=== PATIENT | male | born 1930 | race Caucasian/White ===

== ENCOUNTER 2017-07-25 12:24 | Inpatient (IN) ==
--- NOTE | 2017-07-25 13:08 | Emergency Department Note ---
Arlyn Wheeler Gwan, am scribing for, and in the presence of, Ralph Malik MD 13:04 . Helena Wheeler James D, MD, personally performed the services described in this documentation, ascribed by Audelia Stoddard in my presence, and it is both accurate and complete . Arrival - Arrival Chief Complaint: Extremity Problem Stated Complaint: feet problems ED Nursing Triage Note: PT BEING TREATED FOR WOUNDS ON BOTTOM OF BOTH FEET, DRESSING ON BOTH FEET, TIP OF L GREAT TOE VISIBLE, APPEARANCE BLACK, STRONG ODOR OF GANGRENE Mode of Arrival: Ambulatory Limitations: No Limitations Source: Patient, Old Records Reviewed, RN Notes Reviewed - History of Present Illness HPI Narrative: Patient is a 86 y/o male who presents to the ED for further evaluation of bilateral feet. Patient stated that he is being treated for wounds on the bottom of bilateral feet. He currently has dressing to both feet. Patient stated that the home health nurse has been dressing his feet. During exam, there was a strong smell of gangrene, drainage noted and there is some discoloration. Patient denies being dx with DM. He confirmed that he is compliant with all prescribed medications. No other problems/complaints reported in ED. Onset (ago): day(s) Consistency: constant Severity: moderate Allergies/Adverse Reactions: Allergies Allergy/AdvReac Type Severity Reaction Status Date / Time No Known Allergies Allergy Verified 07/25/17 12:47 Home Medications: Home Medications Medication Instructions Recorded Confirmed Type Amiodarone Tab [Cordarone Tab] 200 mg PO BID 07/25/17 07/25/17 History Finasteride [Proscar] 5 mg PO DAILY 07/25/17 07/25/17 History Review of System - Review of System 12 point system: reviewed and no additional remarkable complaints except as stated - Review of System Constitutional: Absent: chills, fever Eyes: Absent: discharge, pain Musculoskeletal: Present: as per HPI, other (wounds to both feet). Absent: arm pain, back pain, leg pain, neck pain Medical,Surgical,& Family Hx - Medical History Cardio: History of: CHF Renal: History of: Renal Problems (one kidney) Genitourinary: History of: Bladder Problem (indwelling sesay), Prostate Problems - Family History Family History: Reports;: Family Cancer, Family Diabetes, Family Hypertension - Social History Smoking Status: Never smoker Exam Physical Examination: GENERAL: This is a white male in no apparent distress. VITAL SIGNS: Reviewed HEENT: Head is normocephalic and atraumatic. Pupils are equally round and reactive to light. Extraocular movement are intact. Oropharynx is benign with moist mucous membranes. NECK: Neck is soft and supple without tenderness. There are no masses. There is no lymphadenopathy. LUNGS: Lungs are clear to auscultation bilaterally. Chest rises symmetrically. There is no chest wall tenderness. CV: Heart is regular rate and rhythm without murmurs, rubs, or gallops. ABDOMEN: Abdomen is soft, non-tender to palpation. There are no abnormal masses palpated. There is no organomegaly. Bowel sounds are present and active. SKIN: Skin is warm and dry. No rash. EXTREMITIES: Patient has deep ulceration of the left fourth toe with foul- smelling discharge and a large amount of necrotic tissue. The left great toe is swollen to about twice its normal size. Right great toe also has an ulcer and foul-smelling drainage. A culture is obtained from the left great toe.. NEUROLOGIC: Awake, alert, and oriented x4. Cranial nerves II through XII are grossly intact. There are no motorsensory deficits. PSYCHIATRIC: Normal affect. Normal mood. Vital Signs: Vital Signs Temperature 99.2 F 07/25/17 13:00 Pulse Rate 70 07/25/17 14:30 Respiratory Rate 18 07/25/17 14:30 Blood Pressure 164/69 07/25/17 14:30 O2 Sat by Pulse Oximetry 94 L 07/25/17 14:30 Course - Consultations Consultation #1: Discussed with hospitalist. Patient will be admitted to their service. Time: 15:05 Results - Labs CBC & BMP: 07/25/17 13:34 07/25/17 13:34 Lab Results: I have reviewed the patients labs - Diagnostic Findings Procedure: X-ray: image reviewed by me (Bilateral foot x-ray: Destructive bone lesion of the left great toe involving distal and proximal phalanges.) Disposition Clinical Impression: Gangrenous left great toe, Diabetes mellitus, Diabetic foot Case discussed with: patient Disposition: Still a Patient Condition: Stable Time of Disposition: 15:04
--- NOTE | 2017-07-25 13:24 | XRay Report ---
XR foot 2V BI Indication: Gangrene Comparison: None available Findings: Soft tissue wound is seen over the first digit on the right without destructive changes. There is soft tissue wound overlying the first digit on the left with destructive changes of both the proximal and distal phalanx. Impression: Osteomyelitis and septic arthritis of the first digit of the left foot as described above. Soft tissue wound seen over the first digit of the right foot without destructive changes. PROCEDURE INTERPRETED AT [facility] DEPARTMENT OF RADIOLOGY Final Report Signed by: Dr. Ad Martinez
[2017-07-25 13:45] LABS: Basophils # 0.1 10*3/uL (0.0-0.2); Basophils % 0.2 % (0.0-0.8); Eosinophils % 0.1 % (0.00-10.9); Hematocrit 34.2 VOL% (42.0-52.0); Hemoglobin 10.3 GM/DL (14.0-18.0); Immature Granulocytes % 0.5 %; Immature Granulocytes Absolute 0.15 #; Lymphocytes # 24.9 10*3/uL (1.4-4.0); Lymphocytes % 80.4 % (21.2-54.2); Mean Corpuscular HGB Conc 30.1 GM/DL (32-36); Mean Corpuscular Hemoglobin 25 PG (27-34); Mean Corpuscular Volume 83.6 FL (87-102); Mean Platelet Volume 10.1 FL (9.6-12.0); Monocytes # 0.3 10*3/uL (0.11-0.8); Neutrophils # 5.5 10*3/uL (1.4-7.4); Neutrophils % 17.8 % (38.7-73.9); Platelet Count 250 T/CUMM (130-400); Red Blood Count 4.09 MC/CUMM (3.8-5.5); Red Cell Distribution Width 17.2 % (9.3-17.3); White Blood Count 30.9 T/CUMM (4-12)
[2017-07-25 13:54] LABS: INR 1.1; PT Patient Result 11.3 SECS; Partial Thromboplastin Time 29.8 SECS (0-40)
[2017-07-25 14:03] LABS: Lymphocytes 59 % (20-55); Platelet Estimate Adequate; Segmented Neutrophils 36 % (50-85); Total Cells Counted 100
[2017-07-25 14:04] LABS: Anisocytosis Slight; Ovalocytes Slight; Poikilocytosis Slight; Smudge Cells 2+
[2017-07-25 14:08] LABS: Alanine Aminotransferase 20 U/L (16-61); Albumin 3.3 G/DL (3.4-5.0); Alkaline Phosphatase 81 U/L (45-117); Aspartate Amino Transferase 9 U/L (0-37); Bilirubin,Total < 0.39 MG/DL (0.2-1.0); Blood Urea Nitrogen 43 MG/DL (7-18); Calcium 9.2 MG/DL (8.5-10.1); Glucose 359 MG/DL (74-106); Osmolality,Calculated 299.7 MOS/KG (273-304); Potassium 4.3 MMOL/L (3.5-5.1); Sodium 138 MMOL/L (136-145); Total Protein 7.4 G/DL (6.4-8.3)
[2017-07-25] MEDS ORDERED: PIPERACILLIN/TAZOBACTAM 3,375 MG in SODIUM CHLORIDE 0.9% 100 ML IV STA (15:04)
[2017-07-25] MEDS ORDERED: INSULIN LISPRO 100 UNIT/ML SUBCUT STA (15:05)
[2017-07-25] MEDS ORDERED: PIPERACILLIN/TAZOBACTAM 3,375 MG VIAL IV ONE (15:08)
[2017-07-25] MEDS ORDERED: INSULIN LISPRO 100 UNIT/ML SUBCUT ONE (15:09)
[2017-07-25] MEDS ORDERED: ACETAMINOPHEN 325 MG TABLET PO PRN (15:36)
[2017-07-25] MEDS ORDERED: ONDANSETRON 4 MG/2 ML VIAL IV PRN (15:36)
--- NOTE | 2017-07-25 15:39 | Hospitalist History & Physical ---
<Gabbi Bartlett - Last Filed: 07/25/17 15:41> Assessment and Plan - Time spent with patient Time spent with patient: Greater than 30 minutes (1) Diabetic foot Status: Acute Assessment and plan: 07/25/17 Admit Patient denies every being told he was a diabetic. -xray: osteomyelitis -Antibiotic (clindamycin) -accuchecks and sliding scale (on admission BS 359) -Check A1c in a.m. -lipids -Culture of left foot obtained in ed - follow for results -consult surgery (Dr Gandhi) -Patient is followed by renal MD in [place]( has a sesay/leg bag)- will monitor renal -repeat a.m. labs -Further recommendations with care to follow per Dr Tucker. Current Visit: Yes History of Present Illness Chief complaint: foot odor, swelling History of present illness: Mr. Billings is a 86 year old white male w/PMHx CHF, 1-kidney(left), with indwelling sesay/leg bag, prostate problems presented to the ED for further evaluation of wounds to bilateral feet. He reports left great to has been swollen for a couple of days with drainage. He denies any fever, chills, nausea , or vomting. He denies ever being told he has diabetes. IN ED: WBC 30.9, H& H stable 10.3/34.2. BUN 43, Creatinine 2.20. Glucose 359 (6units Humalog given in ED). Wound culture obtained from left great toe. Zosyn started in ED. Xray-foot: Osteomyelitis and septic arthritis of the first digit of left foot, soft tissue wound seen over first digit of right foot. Denies smoking, alcohol use, or drug use. He lives with his and ambulates with a cane. PCP: none Renal: Dr Campos (?MD in [place]) - patient has one kidney and sesay w/leg bag Plug Maker: Dr Rosen After discussion with Dr Malik in ED and Dr Tucker with Hospital Medicine, it was agreed to admit patient for further care. Home medications to be reviewed and reconciliation to follow. Home Medications Medication Instructions Recorded Confirmed Type Amiodarone Tab [Cordarone Tab] 200 mg PO BID 07/25/17 07/25/17 History Finasteride [Proscar] 5 mg PO DAILY 07/25/17 07/25/17 History Allergies Allergy/AdvReac Type Severity Reaction Status Date / Time No Known Allergies Allergy Verified 07/25/17 12:47 Medical,Surgical,& Family Hx - Medical History Cardio: History of: CHF Renal: History of: Renal Problems (one kidney) Genitourinary: History of: Bladder Problem (indwelling sesay), Prostate Problems - Family History Family History: Reports;: Family Cancer, Family Diabetes, Family Hypertension - Social History Smoking Status: Never smoker Frequency of Alcohol Use: None Type of Drug Use: None Marital Status: Lives With:: Spouse Functional capacity: uses cane/walker 12 point system: reviewed and no additional remarkable complaints except as stated - Constitutional Constitutional: Absent: chills, fever(s), frequent falls - Cardiovascular Cardiovascular: Absent: dyspnea, dyspnea on exertion - Respiratory Respiratory: Absent: dyspnea - Neurological Neurological: Absent: dizziness, headache(s) Exam - Constitutional Vitals: Period Temp Pulse Resp BP Sys/Killian Pulse Ox Last 24 Hr 99.2 F-99.2 F 66-87 17-18 161-179/69-84 94-98 General appearance: normal weight, no acute distress - Head Head exam: Present: normal inspection - Eye Eye exam: Present: EOMI Pupils: Present: NICCI - Neck Neck exam: Present: normal inspection. Absent: thyromegaly - Respiratory Respiratory exam: Present: clear to auscultation bilaterally. Absent: rhonchi, stridor, wheezes - Cardiovascular Cardiovascular exam: Present: regular rate and rhythm - GI/Abdominal GI/Abdominal exam: Present: normal bowel sounds, soft. Absent: tenderness, rebound - Extremities Exam Extremities exam: Present: full ROM, other (right foot: callus-great toe; left foot callus -great toe with swelling, red, 4th toe foul odor drainage ). Absent : edema - Neurological Exam Neurological exam: Present: alert, oriented X3, CN II-XII intact - Psychiatric Psychiatric exam: Present: normal affect, normal mood. Absent: agitated, anxious - Skin Skin exam: Present: normal color, warm, dry Results - Labs CBC & BMP: 07/25/17 13:34 07/25/17 13:34 Lab Results: I have reviewed the past 24 hour labs - Diagnostic Findings Procedure: X-ray: report reviewed by me (foot: Osteomyelitis and septic arthritis of first digit of left foot; soft tissue balancing of her first digit of right foot without destrictive change) <Héctor Tucker - Last Filed: 07/25/17 17:04> History of Present Illness History of present illness: Mr. Billings is a 86 year old male who is being admitted to the hospital with osteomyelitis and septic arthritis of the first digit of the left foot and associated soft tissue infection. He has no previously known history of diabetes mellitus but has been found on admission laboratory testing to have a random serum glucose of 359. I have interviewed and examined the patient and reviewed all available laboratory and radiographic test results. He is being admitted to the hospital, begun on intravenous antibiotics, begun on sliding scale regular insulin coverage, and will see surgery and infectious diseases in consultation. Exam - Constitutional Vitals: Period Temp Pulse Resp BP Sys/Killian Pulse Ox Last 24 Hr 99.2 F-99.2 F 66-87 17-18 161-179/69-84 94-98 Results - Labs CBC & BMP: 07/25/17 13:34 07/25/17 13:34
[2017-07-25] MEDS ORDERED: GLUCAGON 1 MG VIAL IM PRN (18:12)
[2017-07-25] MEDS ORDERED: DEXTROSE 50% 25 GM/50 ML VIAL IV PRN (18:12)
[2017-07-25] MEDS: INSULIN LISPRO 100 UNIT/ML SUBCUT SCH ×2 (20:11→20:41)
[2017-07-25] MEDS: AMIODARONE 200 MG TABLET PO SCH (20:43)
[2017-07-25] MEDS: CLINDAMYCIN INJ 600 MG in PREMIX 1 EACH IV SCH (20:44)
[2017-07-25] MEDS: SODIUM CHLORIDE 0.9% 1,000 ML IV SCH (20:44)
[2017-07-26] MEDS: CLINDAMYCIN INJ 600 MG in PREMIX 1 EACH IV SCH ×3 (00:09→17:18)
[2017-07-26 06:23] LABS: Basophils % 0.1 % (0.0-0.8); Eosinophils # 0.1 10*3/uL (0.0-0.87); Eosinophils % 0.4 % (0.00-10.9); Hematocrit 32.3 VOL% (42.0-52.0); Hemoglobin 9.8 GM/DL (14.0-18.0); Immature Granulocytes % 0.4 %; Immature Granulocytes Absolute 0.12 #; Lymphocytes % 82.5 % (21.2-54.2); Mean Corpuscular HGB Conc 30.3 GM/DL (32-36); Mean Corpuscular Hemoglobin 25 PG (27-34); Mean Corpuscular Volume 82.2 FL (87-102); Mean Platelet Volume 9.7 FL (9.6-12.0); Monocytes # 0.3 10*3/uL (0.11-0.8); Monocytes % 1.1 % (1.7-12.7); Neutrophils # 4.3 10*3/uL (1.4-7.4); Neutrophils % 15.5 % (38.7-73.9); Platelet Count 221 T/CUMM (130-400); Red Blood Count 3.93 MC/CUMM (3.8-5.5); Red Cell Distribution Width 17.1 % (9.3-17.3); White Blood Count 27.8 T/CUMM (4-12)
[2017-07-26 06:59] LABS: Calcium 8.4 MG/DL (8.5-10.1); Potassium 4.6 MMOL/L (3.5-5.1); Risk Ratio 4.94; VLDL CHOLESTEROL 26.4 MG/DL
--- NOTE | 2017-07-26 07:00 | General Surgery Consult Note ---
Assessment and Plan (1) Diabetic foot Status: Acute Assessment and plan: Impression: #1 diabetic foot ulcer right great toe #2 diabetic infection left great toe with osteomyelitis Plan: Discussed recommendations with the patient. I have recommended amputation of the left great toe with debridement of the right great toe. Alternatives of medical management with antibiotics alone discussed. The risks and benefits of all discussed. I discussed the procedure how it is performed and anticipated recovery. Risk of the procedure including bleeding, infection, damage to surrounding structures, need for further surgery were all discussed in detail and he understands and wants to proceed. Current Visit: Yes History of Present Illness Chief complaint: Toe ulcer History of present illness: Mr. Billings is a 86 year old male presented to the emergency room with bilateral ulcerations to the great toes. Patient is newly diagnosed diabetic. For the last 3 weeks he has had drainage coming from a swollen left great toe. He denies having fever at home. He has no significant pain. Home Medications Medication Instructions Recorded Confirmed Type Amiodarone Tab [Cordarone Tab] 200 mg PO BID 07/25/17 07/25/17 History Finasteride [Proscar] 5 mg PO DAILY 07/25/17 07/25/17 History Allergies Allergy/AdvReac Type Severity Reaction Status Date / Time No Known Allergies Allergy Verified 07/25/17 12:47 Medical,Surgical,& Family Hx - Medical History Cardio: History of: CHF Renal: History of: Renal Problems (one kidney) Genitourinary: History of: Bladder Problem (indwelling sesay), Prostate Problems Other: History of: Cancer (hx skin cancer) - Family History Family History: Reports;: Family Cancer, Family Diabetes, Family Hypertension - Social History Smoking Status: Never smoker Frequency of Alcohol Use: None Type of Drug Use: None 12 point system: reviewed and no additional remarkable complaints except as stated Exam - Constitutional Vitals: Period Temp Pulse Resp BP Sys/Killian Pulse Ox Last 24 Hr 99.2 F-99.2 F 64-87 17-18 152-207/69-93 94-98 General appearance: no acute distress - Head Head exam: Present: normocephalic - Neck Neck exam: Present: normal inspection - Respiratory Respiratory exam: Present: clear to auscultation bilaterally - Cardiovascular Cardiovascular exam: Present: RRR - GI/Abdominal GI/Abdominal exam: Present: soft - Extremities Exam Extremities exam: Present: other (Feet warm bilaterally. On the right great toe plantar surface there is a small ulceration with nonviable tissue present but it does not appear swollen or have any significant erythema. On the left great toe the toe is approximately twice the size of his right great toe. There is a large ulceration with bone palpable. There is necrotic tissue with purulence draining. There is surrounding erythema limited to the toe only.) - Back Exam Back exam: Present: normal inspection - Neurological Exam Neurological exam: Present: alert, oriented X3 - Skin Skin exam: Present: normal color Results - Labs CBC & BMP: 07/26/17 05:48 07/25/17 13:34 Lab Results: I have reviewed the past 24 hour labs
--- NOTE | 2017-07-26 08:06 | Hospitalist Progress Note ---
Assessment and Plan (1) Osteomyelitis of left foot Status: Acute Assessment and plan: X-rays of the feet demonstrated osteomyelitis of the left great toe and soft tissue infection of the right great toe. He is presently being treated with intravenous clindamycin and Zosyn. He has been seen in consultation by Dr. Gandhi of general surgery who plans an amputation of the left great toe and debridement of the right great toe. I have consulted of DC. Current Visit: Yes (2) Acute on chronic renal failure Status: Acute Assessment and plan: He has a previously known history of chronic kidney disease. His BUN and creatinine were 43 and 2.2 respectively yesterday. He has been treated with intravenous normal saline infusion. His BUN and creatinine today have decreased to 34 and 1.8 respectively. I will continue the intravenous normal saline infusion. Current Visit: Yes Qualifiers: Acute renal failure type: unspecified Chronic kidney disease stage: stage 3 (moderate) Qualified Code(s): N17.9 - Acute kidney failure, unspecified; N18.3 - Chronic kidney disease, stage 3 (moderate); N18.3 - Chronic kidney disease, stage 3 (moderate) (3) Diabetes mellitus Status: Acute Assessment and plan: He has no previously known history of diabetes mellitus. His admission laboratory testing demonstrated blood glucose of 359 and hemoglobin A1c of 8.6% . He is presently being treated with sliding scale regular insulin coverage. I have begun him on metformin 500 mg p.o. twice daily. Current Visit: Yes Qualifiers: Diabetes mellitus type: type 2 Diabetes mellitus complication detail: with foot ulcer Diabetes mellitus equipment operator intermodal yard insulin use: without equipment operator intermodal yard use Hospitalist: Subjective Interval history: Patient spent an uneventful night. He continues on intravenous clindamycin and Zosyn. He was seen yesterday in consultation by Dr. Chavez of general surgery who recommended amputation of the left great toe and debridement of the right great toe. Patient had no known previous history of diabetes mellitus. Laboratory testing demonstrated admission blood glucose of 359 and hemoglobin A1c of 8.6%. He was begun yesterday on sliding scale regular insulin coverage. I will begin him today on metformin. Exam - Constitutional Vitals: Period Temp Pulse Resp BP Sys/Killian Pulse Ox Last 24 Hr 99.2 F-99.2 F 64-87 17-18 152-207/69-93 94-98 General appearance: no acute distress - Head Head exam: Present: normal inspection - Neck Neck exam: Present: normal inspection - Respiratory Respiratory exam: Present: clear to auscultation bilaterally - Cardiovascular Cardiovascular exam: Present: regular rate and rhythm - GI/Abdominal GI/Abdominal exam: Present: normal bowel sounds, soft, other (Nontender with no palpable masses or hepatosplenomegaly.) - Extremities Exam Extremities exam: Present: other (Present: other (Feet warm bilaterally. On the right great toe plantar surface there is a small ulceration with nonviable tissue present but it does not appear swollen or have any significant erythema. On the left great toe the toe is approximately twice the size of his right great toe. There is a large ulceration with bone palpable. There is necrotic tissue with purulence draining. There is surrounding erythema limited to the toe only.)) - Neurological Exam Neurological exam: Present: alert, oriented X3 - Skin Skin exam: Present: normal color, warm, intact Results - Labs CBC & BMP: 07/26/17 05:48 07/26/17 05:47
[2017-07-26 08:48] LABS: Eosinophils 1 % (0-10); Lymphocytes 75 % (20-55); Segmented Neutrophils 22 % (50-85); Total Cells Counted 100
[2017-07-26 08:49] LABS: Hypochromasia 1+; Microcytosis 1+; Ovalocytes Slight; Platelet Estimate Normal
[2017-07-26] MEDS ORDERED: CLINDAMYCIN INJ 50 ML IV ONE (09:14)
--- NOTE | 2017-07-26 10:22 | Anesthesia Post-Op ---
Anesthesia Post OP - Post Ansesthetic Evaluation Patient seen in post op: Yes Resp: within normal limits CV: within normal limits Mental: within normal limits Temp: within normal limits Cyom-Ic-Hkowaftds: within normal limits Nausea and Vomiting: within normal limits Pain: within normal limits
[2017-07-26] MEDS ORDERED: PROPOFOL 200 MG/20 ML VIAL IV ONE (10:25)
[2017-07-26] MEDS ORDERED: ePHEDrine 50 MG/ML AMP ONE (10:26)
[2017-07-26] MEDS ORDERED: ONDANSETRON 4 MG/2 ML VIAL ONE ×2 (10:26→10:50)
[2017-07-26] MEDS ORDERED: fentaNYL 100 MCG/2 ML VIAL ONE (10:26)
[2017-07-26] MEDS ORDERED: SEVOFLURANE 1 UNIT/15 MINUTE INH ONE (10:26)
[2017-07-26] MEDS: INSULIN LISPRO 100 UNIT/ML SUBCUT SCH ×4 (10:29→20:19)
[2017-07-26] MEDS: metFORMIN 500 MG TABLET PO SCH ×2 (10:29→17:17)
[2017-07-26] MEDS: AMIODARONE 200 MG TABLET PO SCH ×3 (10:29→20:19)
[2017-07-26] MEDS: FINASTERIDE 5 MG TABLET PO SCH ×2 (10:30→12:14)
[2017-07-26] MEDS: PANTOPRAZOLE 40 MG TABLET PO SCH ×2 (10:30→12:14)
[2017-07-26] MEDS ORDERED: ONDANSETRON 4 MG/2 ML VIAL IV PRN (10:48)
[2017-07-26] MEDS: HYDROmorphone 2 MG/1 ML VIAL IV PRN ×2 (10:50→10:59)
[2017-07-26] MEDS ORDERED: HYDROmorphone 2 MG/1 ML VIAL ONE (10:50)
--- NOTE | 2017-07-26 12:24 | Operative Note ---
Date of procedure: 07/26/17 Pre-op diagnosis: Diabetic ulcer right great toe #2 diabetic infection left great toe with os Post-op diagnosis: same Procedure: Procedure performed: #1 transmetatarsal amputation of left great toe #2 excisional debridement right great toe ulcer 2 including skin and subcutaneous tissue. First ulcer was 1.1 x 0.8 cm the medial ulcer was 0.9 x 0.4 cm post debridement. Procedure in detail: After informed consent was obtained the patient was taken operating suite lies upon the operating table. After general anesthesia was induced the bilateral lower extremities were prepped and draped in usual sterile fashion. After procedural pause circular incision made around the left great toe and extended down onto the foot. Dissection carried down through the skin and soft tissue. The tendinous structures were divided and placed at the level of the metatarsophalangeal joint. The toe was removed to the metatarsophalangeal joint space and passed off the field. There was evidence of septic arthritis of the metatarsophalangeal joint. The the head of the metatarsal was soft indicating some osteomyelitis of this bone as well. Microsaw was then used to transect the metatarsal removing the head. It was passed off the field. The wound was thoroughly irrigated and suctioned. There is good hemostasis. There was no necrotic tissue. Approximately half of the incision on the proximal portion was closed with interrupted 2-0 nylon suture loosely. The wound was packed with 2 inch Kerlix gauze. Sterile dressings applied. Next a curette was used to perform an excisional debridement on the right great toe. There were 2 ulcers on the plantar surface and one on the medial surface of both were debrided back to healthy bleeding tissue. All the necrotic nonviable skin and subcutaneous tissue was removed. Dressing was applied. Patient tolerated procedure well. He was taken recovery room in stable condition. All lap and needle counts correct at the end of the case. Anesthesia: GETA Surgeon / Physician: Jacobo Gandhi Estimated blood loss: other (Less than 25 cc) Specimens: other (Left great toe) Condition: stable Disposition: PACU Results - Labs CBC & BMP: 07/26/17 05:48 07/26/17 05:47 Discharge Plan - Discharge Medications No Action Finasteride [Proscar] 5 mg PO DAILY Amiodarone Tab [Cordarone Tab] 200 mg PO BID - Follow Up or Referral - Forms/Instructions
--- NOTE | 2017-07-26 13:07 | Infectious Disease Consult ---
Assessment and Plan (1) Diabetes mellitus Status: Acute Current Visit: Yes Qualifiers: Diabetes mellitus type: type 2 Diabetes mellitus complication detail: with foot ulcer Diabetes mellitus termite inspector insulin use: without fpc use (2) Osteomyelitis of left foot Status: Acute Assessment and plan: Patient had amputation of the affected left great toe. For this reason he probably will not need prolonged antibiotic therapy. He has cultures pending and we will continue current antibiotics and follow-up finalized cultures. Depending on the appearance of his feet will decide on duration of antibiotic therapy. Thank you very much for the consult. Will follow. Current Visit: Yes (3) Acute on chronic renal failure Status: Acute Current Visit: Yes Qualifiers: Acute renal failure type: unspecified Chronic kidney disease stage: stage 3 (moderate) Qualified Code(s): N17.9 - Acute kidney failure, unspecified; N18.3 - Chronic kidney disease, stage 3 (moderate); N18.3 - Chronic kidney disease, stage 3 (moderate) History of Present Illness Chief complaint: Osteomyelitis History of present illness: Mr. Billings is a 86 year old male came to hospital yesterday because of pain to feet. He has had chronic ulcers to both feet for prolonged period and has been following with podiatry. Because the pain got unbearable he decided to come to the hospital. His family did not realize his feet was bad as they were on admission. He had evidence of a cellulitis of the left great toe. He was taken to surgery today to amputate the left toe. He had debridement of right great toe which did not appear to have osteomyelitis on imaging studies. Patient has not fever or other constitutional symptoms. Per his family he does not like hospitals and was not previously known to be diabetic. I am asked to assist with management. Home Medications Medication Instructions Recorded Confirmed Type Amiodarone Tab [Cordarone Tab] 200 mg PO BID 07/25/17 07/25/17 History Finasteride [Proscar] 5 mg PO DAILY 07/25/17 07/25/17 History Allergies Allergy/AdvReac Type Severity Reaction Status Date / Time No Known Allergies Allergy Verified 07/25/17 12:47 12 point system: reviewed and no additional remarkable complaints except as stated (Per HPI) Medical,Surgical,& Family Hx - Medical History Cardio: History of: CHF Renal: History of: Renal Problems (one kidney) Genitourinary: History of: Bladder Problem (indwelling sesay), Prostate Problems Other: History of: Cancer (hx skin cancer) - Family History Family History: Reports;: Family Cancer, Family Diabetes, Family Hypertension - Social History Smoking Status: Never smoker Frequency of Alcohol Use: None Type of Drug Use: None Infectious Disease Exam H&P - Constitutional Vitals: Vital Signs Temp Pulse Resp BP Pulse Ox 97.4 F L 65 20 159/71 94 L 07/26/17 11:36 07/26/17 11:36 07/26/17 11:36 07/26/17 11:36 07/26/17 11:36 Intake and Output 07/25/17 07/26/17 07/26/17 23:59 07:59 15:59 Intake Total 410 / 410 50 / 50 50 / 50 Output Total 600 / 600 300 / 300 Balance -190 / -190 -250 / -250 50 / 50 Intake: IV 50 / 50 50 / 50 50 / 50 Cleocin Inj 600 mg In 50 / 50 50 / 50 50 / 50 Premix 1 Each @ 100 mls/ hr IV Q8H [facility] Rx#: [id number] Oral 360 / 360 Output: Urine 600 / 600 300 / 300 Other: Voiding Method Indwelling Catheter Indwelling Catheter # Bowel Movements 0 0 Weight 74.389 kg Exam: General: Patient comfortable HEENT: Mucous membranes pink and moist, anicteric acyanotic, NICCI, no oropharyngeal exudates Neck: Supple, no thyroid gland enlargement Respiratory system: Breath sounds vesicular, no crepitations or wheezes Cardiovascular: Normal S1 and S2, no murmurs appreciated Abdomen: Normal bowel sounds, soft nontender throughout, no organomegaly or mass Genitourinary: No suprapubic pain or bladder distention Extremities: no edema, feet bandaged Skin: No rash Reports - Labs CBC & BMP: 07/26/17 05:48 07/26/17 05:47 Labs: Laboratory Results - last 24 hr 07/25/17 07/25/17 07/25/17 13:34 13:34 13:34 WBC 30.9 H RBC 4.09 Hgb 10.3 L Hct 34.2 L MCV 83.6 L MCH 25 L MCHC 30.1 L RDW 17.2 Plt Count 250 MPV 10.1 Neut % (Auto) 17.8 L Lymph % (Auto) 80.4 H [place] % (Auto) 1.0 L Eos % (Auto) 0.1 Baso % (Auto) 0.2 Neut # (Auto) 5.5 Lymph # (Auto) 24.9 H [place] # (Auto) 0.3 Eos # (Auto) 0.0 Baso # (Auto) 0.1 Total Counted 100 Immature Gran % 0.5 Nucleated RBC % 0.0 Immature Gran # 0.15 Segmented Neutrophils 36 L Lymphocytes 59 H Monocytes 5 Eosinophils Nucleated RBCs # 0.00 Smudge Cells 2+ Platelet Estimate Adequate Immature Plt Fraction 0.0 Hypochromasia Poikilocytosis Slight Anisocytosis Slight Microcytosis Ovalocytes Slight INR 1.1 PT Patient/Control Mix 11.3 Circ Anticoag PTT 29.8 Sodium 138 Potassium 4.3 Chloride 106 Carbon Dioxide 25 Anion Gap 11.3 BUN 43 H Creatinine 2.20 H GFR Calculation 29 BUN/Creatinine Ratio 19.00 Glucose 359 H POC Glucose Hemoglobin A1c Calculated Osmolality 299.7 Calcium 9.2 Magnesium Total Bilirubin < 0.39 AST 9 ALT 20 Alkaline Phosphatase 81 B-Natriuretic Peptide Total Protein 7.4 Albumin 3.3 L Globulin 4.1 H Albumin/Globulin Ratio 0.8 L Triglycerides Cholesterol LDL Cholesterol VLDL Cholesterol HDL Cholesterol Heart Disease Risk Ratio 07/25/17 07/25/17 07/26/17 17:56 18:52 05:47 WBC RBC Hgb Hct MCV MCH MCHC RDW Plt Count MPV Neut % (Auto) Lymph % (Auto) [place] % (Auto) Eos % (Auto) Baso % (Auto) Neut # (Auto) Lymph # (Auto) [place] # (Auto) Eos # (Auto) Baso # (Auto) Total Counted Immature Gran % Nucleated RBC % Immature Gran # Segmented Neutrophils Lymphocytes Monocytes Eosinophils Nucleated RBCs # Smudge Cells Platelet Estimate Immature Plt Fraction Hypochromasia Poikilocytosis Anisocytosis Microcytosis Ovalocytes INR PT Patient/Control Mix Circ Anticoag PTT Sodium 143 Potassium 4.6 Chloride 108 H Carbon Dioxide 27 Anion Gap 12.6 BUN 34 H Creatinine 1.80 H GFR Calculation 36 BUN/Creatinine Ratio 18.00 Glucose 150 H POC Glucose 197 H 144 H Hemoglobin A1c Calculated Osmolality 295.0 Calcium 8.4 L Magnesium 2.0 Total Bilirubin AST ALT Alkaline Phosphatase B-Natriuretic Peptide Total Protein Albumin Globulin Albumin/Globulin Ratio Triglycerides 132 Cholesterol 158 LDL Cholesterol 105.0 VLDL Cholesterol 26.4 HDL Cholesterol 32 L Heart Disease Risk Ratio 4.94 07/26/17 07/26/17 07/26/17 05:48 05:48 05:48 WBC 27.8 H RBC 3.93 Hgb 9.8 L Hct 32.3 L MCV 82.2 L MCH 25 L MCHC 30.3 L RDW 17.1 Plt Count 221 MPV 9.7 Neut % (Auto) 15.5 L Lymph % (Auto) 82.5 H [place] % (Auto) 1.1 L Eos % (Auto) 0.4 Baso % (Auto) 0.1 Neut # (Auto) 4.3 Lymph # (Auto) 23.0 H [place] # (Auto) 0.3 Eos # (Auto) 0.1 Baso # (Auto) 0.0 Total Counted 100 Immature Gran % 0.4 Nucleated RBC % 0.0 Immature Gran # 0.12 Segmented Neutrophils 22 L Lymphocytes 75 H Monocytes 2 Eosinophils 1 Nucleated RBCs # 0.00 Smudge Cells Platelet Estimate Normal Immature Plt Fraction 0.0 Hypochromasia 1+ Poikilocytosis Anisocytosis Microcytosis 1+ Ovalocytes Slight INR PT Patient/Control Mix Circ Anticoag PTT Sodium Potassium Chloride Carbon Dioxide Anion Gap BUN Creatinine GFR Calculation BUN/Creatinine Ratio Glucose POC Glucose Hemoglobin A1c 8.6 H Calculated Osmolality Calcium Magnesium Total Bilirubin AST ALT Alkaline Phosphatase B-Natriuretic Peptide 168 H Total Protein Albumin Globulin Albumin/Globulin Ratio Triglycerides Cholesterol LDL Cholesterol VLDL Cholesterol HDL Cholesterol Heart Disease Risk Ratio 07/26/17 07:20 WBC RBC Hgb Hct MCV MCH MCHC RDW Plt Count MPV Neut % (Auto) Lymph % (Auto) [place] % (Auto) Eos % (Auto) Baso % (Auto) Neut # (Auto) Lymph # (Auto) [place] # (Auto) Eos # (Auto) Baso # (Auto) Total Counted Immature Gran % Nucleated RBC % Immature Gran # Segmented Neutrophils Lymphocytes Monocytes Eosinophils Nucleated RBCs # Smudge Cells Platelet Estimate Immature Plt Fraction Hypochromasia Poikilocytosis Anisocytosis Microcytosis Ovalocytes INR PT Patient/Control Mix Circ Anticoag PTT Sodium Potassium Chloride Carbon Dioxide Anion Gap BUN Creatinine GFR Calculation BUN/Creatinine Ratio Glucose POC Glucose 168 H Hemoglobin A1c Calculated Osmolality Calcium Magnesium Total Bilirubin AST ALT Alkaline Phosphatase B-Natriuretic Peptide Total Protein Albumin Globulin Albumin/Globulin Ratio Triglycerides Cholesterol LDL Cholesterol VLDL Cholesterol HDL Cholesterol Heart Disease Risk Ratio - Reports Microbiology: Microbiology 07/25/17 13:34 Wound Culture - Preliminary Toe - Left Big Gram Negative Rods - Diagnostic Findings Procedure: X-ray: report reviewed by me (Cellulitis changes of left great toe)
[2017-07-26] MEDS: SODIUM CHLORIDE 0.9% 1,000 ML IV SCH ×2 (15:10→19:43)
[2017-07-26] MEDS: PIPERACILLIN/TAZOBACTAM 3,375 MG in SODIUM CHLORIDE 0.9% 100 ML IV SCH (19:43)
--- NOTE | 2017-07-26 20:46 | Order Completion Report ---
See report scanned to EMR
[2017-07-27] MEDS: CLINDAMYCIN INJ 600 MG in PREMIX 1 EACH IV SCH ×3 (00:02→17:50)
[2017-07-27] MEDS: PIPERACILLIN/TAZOBACTAM 3,375 MG in SODIUM CHLORIDE 0.9% 100 ML IV SCH ×2 (03:08→11:24)
[2017-07-27 06:24] LABS: Basophils # 0.1 10*3/uL (0.0-0.2); Basophils % 0.2 % (0.0-0.8); Eosinophils # 0.1 10*3/uL (0.0-0.87); Eosinophils % 0.4 % (0.00-10.9); Hematocrit 31.5 VOL% (42.0-52.0); Hemoglobin 9.7 GM/DL (14.0-18.0); Immature Granulocytes % 0.5 %; Immature Granulocytes Absolute 0.14 #; Lymphocytes # 22.6 10*3/uL (1.4-4.0); Lymphocytes % 81.9 % (21.2-54.2); Mean Corpuscular HGB Conc 30.8 GM/DL (32-36); Mean Corpuscular Hemoglobin 25 PG (27-34); Mean Corpuscular Volume 82.5 FL (87-102); Mean Platelet Volume 9.9 FL (9.6-12.0); Monocytes # 0.3 10*3/uL (0.11-0.8); Monocytes % 1.2 % (1.7-12.7); Neutrophils # 4.4 10*3/uL (1.4-7.4); Neutrophils % 15.8 % (38.7-73.9); Platelet Count 232 T/CUMM (130-400); Red Blood Count 3.82 MC/CUMM (3.8-5.5); Red Cell Distribution Width 16.9 % (9.3-17.3); White Blood Count 27.6 T/CUMM (4-12)
[2017-07-27 06:46] LABS: Calcium 8.2 MG/DL (8.5-10.1)
[2017-07-27 06:47] LABS: Osmolality,Calculated 285.5 MOS/KG (273-304); Potassium 5.3 MMOL/L (3.5-5.1)
[2017-07-27 06:58] LABS: Lymphocytes 71 % (20-55); Segmented Neutrophils 29 % (50-85); Total Cells Counted 100
[2017-07-27 07:00] LABS: Atypical Lymphocytes Few; Giant Platelets Few; Hypochromasia 1+; Microcytosis Slight; Ovalocytes Slight; Platelet Estimate Adequate; Smudge Cells Few
--- NOTE | 2017-07-27 08:33 | Hospitalist Progress Note ---
Assessment and Plan (1) Osteomyelitis of left foot Status: Acute Assessment and plan: He is stable status post right great toe transmetatarsal amputation and left great toe excisional debridement. He is presently being treated with intravenous clindamycin and Zosyn. Initial microbiology demonstrated gram- negative rods from the wound incision. I will await further recommendations from infectious diseases concerning antibiotics. Current Visit: Yes (2) Acute on chronic renal failure Status: Acute Assessment and plan: He has a previously known history of chronic kidney disease. His BUN and creatinine were 43 and 2.2 respectively on admission. Today his BUN and creatinine are 27 and 1.7 respectively. His GFR is 39. Current Visit: Yes Qualifiers: Acute renal failure type: unspecified Chronic kidney disease stage: stage 3 (moderate) Qualified Code(s): N17.9 - Acute kidney failure, unspecified; N18.3 - Chronic kidney disease, stage 3 (moderate); N18.3 - Chronic kidney disease, stage 3 (moderate) (3) Diabetes mellitus Status: Acute Assessment and plan: His blood glucose today is 172 on metformin 500 mg p.o. twice daily. He is presently being seen in consultation by the diabetes education nurse.. Current Visit: Yes Qualifiers: Diabetes mellitus type: type 2 Diabetes mellitus complication detail: with foot ulcer Diabetes mellitus terminal manager insulin use: without terminal manager use Hospitalist: Subjective Interval history: Patient is stable status post right great toe transmetatarsal amputation and left great toe excisional debridement. He is only experiencing mild postoperative pain. He was seen in consultation yesterday by infectious diseases and continues on intravenous clindamycin and Zosyn. Initial wound cultures demonstrated gram-negative rods. Exam - Constitutional Vitals: Period Temp Pulse Resp BP Sys/Killian Pulse Ox Last 24 Hr 97.4 F-98.2 F 63-79 14-20 122-168/56-78 92-100 General appearance: no acute distress - Head Head exam: Present: normal inspection - Neck Neck exam: Present: normal inspection - Respiratory Respiratory exam: Present: clear to auscultation bilaterally - Cardiovascular Cardiovascular exam: Present: regular rate and rhythm - GI/Abdominal GI/Abdominal exam: Present: normal bowel sounds, soft, other (Nontender with no palpable masses or hepatosplenomegaly.) - Extremities Exam Extremities exam: Present: other (Both feet are bandaged.) - Neurological Exam Neurological exam: Present: alert, oriented X3 - Skin Skin exam: Present: normal color, warm, intact Results - Labs CBC & BMP: 07/27/17 05:55 07/27/17 05:55
[2017-07-27] MEDS: FINASTERIDE 5 MG TABLET PO SCH (09:08)
[2017-07-27] MEDS: AMIODARONE 200 MG TABLET PO SCH ×2 (09:08→20:42)
[2017-07-27] MEDS: PANTOPRAZOLE 40 MG TABLET PO SCH (09:08)
[2017-07-27] MEDS: INSULIN LISPRO 100 UNIT/ML SUBCUT SCH ×4 (09:08→20:47)
[2017-07-27] MEDS: metFORMIN 500 MG TABLET PO SCH ×2 (09:08→16:07)
--- NOTE | 2017-07-27 10:42 | Event Note ---
Patient is postoperative day #1 status post transplant tarsal amputation of the great toe and excisional debridement of right great toe ulcer. Patient reports he feels well this morning and has minimal pain in the bilateral lower extremities. Vital signs reviewed; afebrile. Persistent leukocytosis with WBC and 27.6. Patient remains on clindamycin and Zosyn; infectious disease consultation in place. Surgical dressings were removed. The right great toe ulcer is clean and dry. The left foot wound is clean with healthy wound bed and no evidence of erythema, drainage, or necrosis. The wounds were redressed today. At this point, the leukocytosis does not appear to be associated bilateral lower extremities as the foot wounds appear very clean without evidence of infection. Patient to continue with local wound care and follow-up outpatient in approximately 1-[address] Gandhi. Antibiotics per Dr. Stoddard. His daughter is at the bedside and is confident that she can manage the wound care at home.
--- NOTE | 2017-07-27 12:19 | Pathology Report from [facility] ---
[facility] [place] ACCESSION # : [id number] PATIENT NAME : Felicity Billings ORDERING DR : Jacobo Gandhi MD CLINICAL HX: Diabetic foot ulcer POST-OP DX: Same SPECIMEN INFO: LT great toe GROSS DESCRIPTION: Received in formalin labeled FELICITY BILLINGS is a great toe measuring 6.8 x 3.7 x 3.2 cm. The skin is pink branch with a 0.7 x 0.6 cm ulceration noted on the plantar surface. Received separately in the specimen container are fragments of bone and attached soft tissue measuring 5.5 x 3.5 cm in aggregate. Section of the ulcer is submitted in cassette A and sections of underlying bone in cassette B following decalcification. DIAGNOSIS FOR FELICITY BILLINGS: LEFT GREAT TOE AMPUTATION: Ulceration with acute and chronic inflammation, granulation, fibrosis, marked hyperkeratosis. COLLECTED DATE: 07/26/2017 [facility] [place] REPORT DATE: 07/27/2017 ELECTRONICALLY SIGNED BY: Em Decker M.D. 07/27/2017 - 9:05:08 PATRIZIA
[2017-07-27] MEDS ORDERED: MAGNESIUM HYDROXIDE SUSP 30 ML UDCUP PO PRN (13:33)
--- NOTE | 2017-07-27 17:14 | Infectious Disease Progress ---
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 Multidrug-resistant Proteus isolated from the wound. Recommendations: 1. Discontinue Zosyn and clindamycin 2. Start levofloxacin to cover the Proteus, renally dosed at 750 mg every 48 hours 3. Wound care. Will attempt to look at the wound tomorrow to get an idea of how much longer we need to continue antibiotic therapy for Discussed with children at bedside Current Visit: Yes (3) Acute on chronic renal failure Status: Acute Current Visit: Yes Qualifiers: Acute renal failure type: unspecified Chronic kidney disease stage: stage 3 (moderate) Qualified Code(s): N17.9 - Acute kidney failure, unspecified; N18.3 - Chronic kidney disease, stage 3 (moderate); N18.3 - Chronic kidney disease, stage 3 (moderate) Infectious Disease - PN: Subj Interval history: Patient doing great today, no complaints at all. He was even ambulating with physical therapy. He has not fever. Tolerating antibiotics without nausea vomiting or diarrhea. Infectious Disease Exam (PN) - Constitutional Vitals: Temp Pulse Resp BP Pulse Ox 98.0 F 68 16 160/72 93 L 07/27/17 11:47 07/27/17 11:47 07/27/17 11:47 07/27/17 11:47 07/27/17 11:47 General appearance: no acute distress Exam: General appearance: no acute distress - Eye Eye exam: Present: EOMI. no icterus Pupils: Present: NICCI - ENT ENT exam: no oral exudates - Respiratory Respiratory exam: vesicular BS, no crepitations or wheezes - Cardiovascular Cardiovascular exam: regular rate and rhythm, no murmurs - GI/Abdominal GI/Abdominal exam: normal bowel sounds, soft, non-tender, no organomegaly or mass - Extremities Exam Extremities exam: no edema, feet bandaged - Skin Skin exam: no rash Results - Labs CBC & BMP: 07/27/17 05:55 07/27/17 05:55 Lab Results: I have reviewed the past 24 hour labs (Multidrug-resistant Proteus isolated from left great toe wound) Specialty Discharge - Follow Up or Referrals Follow up with: Jacobo Gandhi MD [Physician] - (1-2 weeks for wound follow up) Suzanne Shirley DO [Physician] - (Next week) Tam Lira DO [Physician] - (Chose for primary)
[2017-07-27] MEDS: CEFEPIME 1,000 MG in SODIUM CHLORIDE 0.9% 50 ML IV SCH (18:31)
[2017-07-27] MEDS: SODIUM CHLORIDE 0.9% 1,000 ML IV SCH (20:43)
[2017-07-28 03:33] LABS: Basophils # 0.1 10*3/uL (0.0-0.2); Basophils % 0.2 % (0.0-0.8); Eosinophils # 0.2 10*3/uL (0.0-0.87); Eosinophils % 0.6 % (0.00-10.9); Hematocrit 32.1 VOL% (42.0-52.0); Hemoglobin 9.5 GM/DL (14.0-18.0); Immature Granulocytes % 0.6 %; Lymphocytes # 25.3 10*3/uL (1.4-4.0); Lymphocytes % 82.1 % (21.2-54.2); Mean Corpuscular HGB Conc 29.6 GM/DL (32-36); Mean Corpuscular Hemoglobin 24 PG (27-34); Mean Corpuscular Volume 82.3 FL (87-102); Mean Platelet Volume 9.9 FL (9.6-12.0); Monocytes # 0.4 10*3/uL (0.11-0.8); Monocytes % 1.3 % (1.7-12.7); Neutrophils # 4.7 10*3/uL (1.4-7.4); Neutrophils % 15.2 % (38.7-73.9); Platelet Count 236 T/CUMM (130-400); White Blood Count 30.8 T/CUMM (4-12)
[2017-07-28 04:10] LABS: Osmolality,Calculated 280.7 MOS/KG (273-304); Potassium 5.1 MMOL/L (3.5-5.1)
[2017-07-28 05:06] LABS: Atypical Lymphocytes Few; Eosinophils 1 % (0-10); Giant Platelets Few; Hypochromasia 1+; Lymphocytes 68 % (20-55); Microcytosis Slight; Ovalocytes Slight; Platelet Estimate Adequate; Segmented Neutrophils 27 % (50-85); Smudge Cells Few; Total Cells Counted 100
--- NOTE | 2017-07-28 08:03 | Event Note ---
Status post left great toe amputation. Wound looks great. There is no erythema. There is no necrotic tissue. Right great toe ulcers are stable. Continue local wound care. We will continue packing the left amputation site. I suspect the leukocytosis is from another source. When he is discharged he can follow-up with me in 1-2 weeks to continue outpatient care of his feet.
[2017-07-28] MEDS: PANTOPRAZOLE 40 MG TABLET PO SCH (08:24)
[2017-07-28] MEDS: metFORMIN 500 MG TABLET PO SCH ×2 (08:24→17:05)
[2017-07-28] MEDS: AMIODARONE 200 MG TABLET PO SCH ×2 (08:24→20:59)
[2017-07-28] MEDS: INSULIN LISPRO 100 UNIT/ML SUBCUT SCH ×4 (08:24→23:20)
[2017-07-28] MEDS: FINASTERIDE 5 MG TABLET PO SCH (08:24)
[2017-07-28] MEDS: SODIUM CHLORIDE 0.9% 1,000 ML IV SCH ×2 (08:26→23:27)
--- NOTE | 2017-07-28 09:00 | Hospitalist Progress Note ---
Assessment and Plan (1) Osteomyelitis of left foot Status: Acute Assessment and plan: He is stable status post right great toe transmetatarsal amputation and left great toe excisional debridement day 2. He is presently being treated with intravenous cefepime as per infectious diseases. Current Visit: Yes (2) Acute on chronic renal failure Status: Acute Assessment and plan: He has a previously known history of chronic kidney disease. His BUN and creatinine were 43 and 2.2 respectively on admission. They have decreased to 24 and 1.7 respectively today. There is been no significant change since yesterday. His calculated GFR remains the same at 39. These are compatible with stage III chronic kidney disease. Current Visit: Yes Qualifiers: Acute renal failure type: unspecified Chronic kidney disease stage: stage 3 (moderate) Qualified Code(s): N17.9 - Acute kidney failure, unspecified; N18.3 - Chronic kidney disease, stage 3 (moderate); N18.3 - Chronic kidney disease, stage 3 (moderate) (3) Diabetes mellitus Status: Acute Assessment and plan: His blood glucose today is 133 on metformin 500 mg p.o. twice daily. He has been seen in consultation by the diabetes education nurse. Current Visit: Yes Qualifiers: Diabetes mellitus type: type 2 Diabetes mellitus complication detail: with foot ulcer Diabetes mellitus assisted insulin use: without terminal supervisor use Hospitalist: Subjective Interval history: Patient is doing well with no complaints. He is being followed by infectious diseases. Cultures demonstrated Proteus vulgaris for which he is presently being treated with intravenous cefepime. He is being followed both by general surgery and wound care. I await further recommendations concerning the antibiotics from infectious diseases. Exam - Constitutional Vitals: Period Temp Pulse Resp BP Sys/Killian Pulse Ox Last 24 Hr 98 F-98.1 F 68-95 16-20 160-181/72-75 90-94 General appearance: no acute distress - Head Head exam: Present: normal inspection - Neck Neck exam: Present: normal inspection - Respiratory Respiratory exam: Present: clear to auscultation bilaterally - Cardiovascular Cardiovascular exam: Present: regular rate and rhythm - GI/Abdominal GI/Abdominal exam: Present: normal bowel sounds, soft, other (Nontender with no palpable masses or hepatosplenomegaly.) - Extremities Exam Extremities exam: Present: normal inspection - Neurological Exam Neurological exam: Present: alert, oriented X3 - Skin Skin exam: Present: normal color, warm, intact Results - Labs CBC & BMP: 07/28/17 02:51 07/28/17 02:51 Specialty Discharge - Follow Up or Referrals Follow up with: Jacobo Gandhi MD [Physician] - (1-2 weeks for wound follow up) Suzanne Shirley DO [Physician] - (Next week) Tam Lira DO [Physician] - (Chose for primary)
--- NOTE | 2017-07-28 11:28 | Infectious Disease Progress ---
Assessment and Plan (1) Diabetes mellitus Status: Acute Current Visit: Yes Qualifiers: Diabetes mellitus type: type 2 Diabetes mellitus complication detail: with foot ulcer Diabetes mellitus exterminator helper termite insulin use: without prison use (2) Osteomyelitis of left foot Status: Acute Assessment and plan: Patient had amputation of the affected left great toe, which is essentially surgical cure of his osteomyelitis. Multidrug-resistant Proteus isolated from the toe. Amputation stump without evidence of ongoing infection. Patient has severe leukocytosis with quite profound lymphocyte predominance. 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 Recommendations: Continue Zosyn for about 5 days and then stop it. Continue local wound care. I will sign off now. Call again as needed. Current Visit: Yes (3) Acute on chronic renal failure Status: Acute Current Visit: Yes Qualifiers: Acute renal failure type: unspecified Chronic kidney disease stage: stage 3 (moderate) Qualified Code(s): N17.9 - Acute kidney failure, unspecified; N18.3 - Chronic kidney disease, stage 3 (moderate); N18.3 - Chronic kidney disease, stage 3 (moderate) (4) Persistent lymphocytosis Status: Acute Assessment and plan: No evidence of ongoing infection. 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 Current Visit: Yes Infectious Disease - PN: Subj Interval history: Patient doing well, no nausea vomiting or diarrhea and antibiotics. He has not had fever. Left foot feels good to him no pain. Infectious Disease Exam (PN) - Constitutional Vitals: Temp Pulse Resp BP Pulse Ox 97.4 F L 69 18 158/79 94 L 07/28/17 08:15 07/28/17 08:15 07/28/17 08:15 07/28/17 08:15 07/28/17 08:15 General appearance: no acute distress Exam: General appearance: no acute distress, very jovial - Eye Eye exam: Present: EOMI. no icterus Pupils: Present: NICCI - ENT ENT exam: no oral exudates - Respiratory Respiratory exam: vesicular BS, no crepitations or wheezes - Cardiovascular Cardiovascular exam: regular rate and rhythm, no murmurs - GI/Abdominal GI/Abdominal exam: normal bowel sounds, soft, non-tender, no organomegaly or mass - Extremities Exam Extremities exam: no edema, left foot noted with partially closed right great toe amputation stump, exposed tissues healthy pink, no surrounding erythema or induration, no drainage. Right great toe noted with shallow ulcerations to plantar aspect, no evidence of infection. - Skin Skin exam: no rash Results - Labs CBC & BMP: 07/28/17 02:51 07/28/17 02:51 Lab Results: I have reviewed the past 24 hour labs Specialty Discharge - Follow Up or Referrals Follow up with: Jacobo Gandhi MD [Physician] - (1-2 weeks for wound follow up) Suzanne Shirley DO [Physician] - (Next week) Tam Lira DO [Physician] - (Chose for primary)
[2017-07-28] MEDS: CEFEPIME 1,000 MG in SODIUM CHLORIDE 0.9% 50 ML IV SCH (17:05)
[2017-07-29 04:29] LABS: Basophils % 0.1 % (0.0-0.8); Eosinophils # 0.2 10*3/uL (0.0-0.87); Eosinophils % 0.5 % (0.00-10.9); Hematocrit 30.9 VOL% (42.0-52.0); Hemoglobin 9.4 GM/DL (14.0-18.0); Immature Granulocytes % 0.8 %; Immature Granulocytes Absolute 0.24 #; Lymphocytes # 23.5 10*3/uL (1.4-4.0); Lymphocytes % 81.8 % (21.2-54.2); Mean Corpuscular HGB Conc 30.4 GM/DL (32-36); Mean Corpuscular Hemoglobin 25 PG (27-34); Mean Corpuscular Volume 82.8 FL (87-102); Mean Platelet Volume 9.8 FL (9.6-12.0); Monocytes # 0.4 10*3/uL (0.11-0.8); Monocytes % 1.3 % (1.7-12.7); Neutrophils # 4.4 10*3/uL (1.4-7.4); Neutrophils % 15.5 % (38.7-73.9); Platelet Count 218 T/CUMM (130-400); Red Blood Count 3.73 MC/CUMM (3.8-5.5); Red Cell Distribution Width 16.9 % (9.3-17.3); White Blood Count 28.7 T/CUMM (4-12)
[2017-07-29 04:58] LABS: Calcium 8.2 MG/DL (8.5-10.1); Osmolality,Calculated 283.4 MOS/KG (273-304); Potassium 5.1 MMOL/L (3.5-5.1)
[2017-07-29 06:05] LABS: Band Neutrophils 1 % (0-10); Hypochromasia 2+; Lymphocytes 79 % (20-55); Platelet Estimate Normal; Segmented Neutrophils 19 % (50-85); Total Cells Counted 100
[2017-07-29 06:06] LABS: Anisocytosis 1+; Elliptocytes Few; Macrocytosis 1+
[2017-07-29] MEDS: INSULIN LISPRO 100 UNIT/ML SUBCUT SCH ×4 (07:47→21:35)
[2017-07-29] MEDS: metFORMIN 500 MG TABLET PO SCH ×2 (08:15→17:32)
[2017-07-29] MEDS: AMIODARONE 200 MG TABLET PO SCH ×2 (08:15→21:34)
[2017-07-29] MEDS: PANTOPRAZOLE 40 MG TABLET PO SCH (08:15)
[2017-07-29] MEDS: FINASTERIDE 5 MG TABLET PO SCH (08:15)
--- NOTE | 2017-07-29 08:34 | Hospitalist Progress Note ---
Assessment and Plan (1) Osteomyelitis of left foot Status: Acute Assessment and plan: He is stable status post right great toe transmetatarsal amputation and left great toe excisional debridement day 3. He is presently being treated with intravenous cefepime as per infectious diseases. Current Visit: Yes (2) Acute on chronic renal failure Status: Acute Assessment and plan: He has a previously known history of chronic kidney disease. His BUN and creatinine were 43 and 2.2 respectively on admission. They have decreased to 25 and 1.5 respectively today. There has been no significant change since yesterday. His calculated GFR remains the same at 39. These are compatible with stage III chronic kidney disease, with resolving acute on chronic renal failure. Current Visit: Yes Qualifiers: Acute renal failure type: unspecified Chronic kidney disease stage: stage 3 (moderate) Qualified Code(s): N17.9 - Acute kidney failure, unspecified; N18.3 - Chronic kidney disease, stage 3 (moderate); N18.3 - Chronic kidney disease, stage 3 (moderate) (3) Diabetes mellitus Status: Acute Assessment and plan: His blood glucose today is 144 on metformin 500 mg p.o. twice daily. He has been seen in consultation by the diabetes education nurse. 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 Current Visit: Yes Hospitalist: Subjective Interval history: Patient is doing well. Today is day 3 of intravenous cefepime. As noted by infectious disease, cultures demonstrated multidrug resistant Proteus from the amputated toe. The surgical sites appear clean with no evidence of persistent active infection. Also, as noted by infectious disease, he has a persistent leukocytosis predominantly consisting of lymphocytes possibly suggestive of CLL. I have consulted hematology. I will continue the intravenous cefepime as instructed by infectious diseases for 1 more day. Exam - Constitutional Vitals: Period Temp Pulse Resp BP Sys/Killian Pulse Ox Last 24 Hr 97.6 F-98.9 F 61-71 16-20 159-176/64-80 90-96 General appearance: no acute distress - Head Head exam: Present: normal inspection - Neck Neck exam: Present: normal inspection - Respiratory Respiratory exam: Present: clear to auscultation bilaterally - Cardiovascular Cardiovascular exam: Present: regular rate and rhythm - GI/Abdominal GI/Abdominal exam: Present: normal bowel sounds, soft, other (Nontender with no palpable masses or hepatosplenomegaly.) - Extremities Exam Extremities exam: Present: other (Both feet appear to be healing well with no evidence of active infection.) - Neurological Exam Neurological exam: Present: alert, oriented X3 - Skin Skin exam: Present: normal color, warm, intact Results - Labs CBC & BMP: 07/29/17 03:24 07/29/17 03:24 Specialty Discharge - Follow Up or Referrals Follow up with: Jacobo Gandhi MD [Physician] - (1-2 weeks for wound follow up) Suzanne Shirley DO [Physician] - (Next week) Tam Lira DO [Physician] - (Chose for primary)
--- NOTE | 2017-07-29 11:01 | Oncology Consult Note ---
Assessment and Plan - Time spent with patient Time spent with patient: Greater than 30 minutes (1) CLL (chronic lymphocytic leukemia) Status: Acute Current Visit: Yes History of Present Illness History of present illness: Mr. Billings is a 86 year old male with a long-standing history of CLL that was last seen in our clinic in [address] Hurst. He did not relay this information to his primary physicians during this hospitalization. We have been consulted for evaluation of lymphocytosis. His lymphocyte count is actually lower than it was 4 years ago at his last office visit. I encouraged him to reestablish follow-up with Dr. Hurst at least once yearly. There is nothing more to add from hematology standpoint at this time. Patient is ready for discharge from our standpoint. Home Medications Medication Instructions Recorded Confirmed Type Amiodarone Tab [Cordarone Tab] 200 mg PO BID 07/25/17 07/25/17 History Finasteride [Proscar] 5 mg PO DAILY 07/25/17 07/25/17 History Allergies Allergy/AdvReac Type Severity Reaction Status Date / Time No Known Allergies Allergy Verified 07/25/17 12:47 Medical,Surgical,& Family Hx - Medical History Cardio: History of: CHF Renal: History of: Renal Problems (one kidney) Genitourinary: History of: Bladder Problem (indwelling sesay), Prostate Problems Other: History of: Cancer (hx skin cancer) - Family History Family History: Reports;: Family Cancer, Family Diabetes, Family Hypertension - Social History Smoking Status: Never smoker Frequency of Alcohol Use: None Type of Drug Use: None 12 point system: reviewed and no additional remarkable complaints except as stated Exam - Constitutional Vitals: Period Temp Pulse Resp BP Sys/Killian Pulse Ox Last 24 Hr 97.6 F-98.9 F 61-71 16-20 159-176/64-80 90-96 General appearance: normal weight, no acute distress - Head Head Exam: Present: normocephalic, atraumatic - Eye Eye Exam: Present: EOMI Pupils: Present: PERRL - ENT ENT exam: Present: normal exam, normal oropharynx - Neck Neck exam: Absent: lymphadenopathy, thyromegaly - Respiratory Respiratory exam: Present: CTAB. Absent: wheezes - Cardiovascular Cardiovascular exam: Present: RRR. Absent: JVD, systolic murmur - GI/Abdominal GI/Abdominal exam: Present: soft. Absent: ascites, distended, mass - Neurological Exam Neurological exam: Present: alert, oriented X3 - Psychiatric Psychiatric exam: Present: normal affect, normal mood - Skin Skin exam: Present: warm, dry Results - Labs CBC & BMP: 07/29/17 03:24 07/29/17 03:24 Lab Results: I have reviewed the past 24 hour labs Specialty Discharge - Follow Up or Referrals Follow up with: Jacobo Gandhi MD [Physician] - (1-2 weeks for wound follow up) Suzanne Shirley DO [Physician] - (Next week) Tam Lira DO [Physician] - (Chose for primary)
--- NOTE | 2017-07-29 11:06 | Event Note ---
This patient was treated with left great toe transmetatarsal amputation with additional toe debridements on the right side. His wounds are clean today and we continue local wound care and antibiotics. He has grown Proteus from his wounds and he is on cefepime which this is an appropriate agent for. Continue wound care and antibiotics his white blood cell count is elevated but is not higher than it was yesterday and there do not appear to be any infectious issues with local source control based on his physical exam
[2017-07-29] MEDS: CEFEPIME 1,000 MG in SODIUM CHLORIDE 0.9% 50 ML IV SCH (17:32)
[2017-07-29] MEDS: SODIUM CHLORIDE 0.9% 1,000 ML IV SCH (21:35)
[2017-07-30 07:30] VITALS: BP 168/87
[2017-07-30] MEDS: INSULIN LISPRO 100 UNIT/ML SUBCUT SCH (07:48)
[2017-07-30] MEDS: AMIODARONE 200 MG TABLET PO SCH (08:08)
[2017-07-30] MEDS: PANTOPRAZOLE 40 MG TABLET PO SCH (08:08)
[2017-07-30] MEDS: FINASTERIDE 5 MG TABLET PO SCH (08:08)
[2017-07-30] MEDS: metFORMIN 500 MG TABLET PO SCH (08:08)
--- NOTE | 2017-07-30 08:22 | Discharge Summary ---
Hospital Course - Hospital Course Hospital Course: Mr. Billings is a 86 year old white male w/PMHx CHF, 1-kidney(left), with indwelling sesay/leg bag, prostate problems presented to the ED for further evaluation of wounds to bilateral feet. He reports left great to has been swollen for a couple of days with drainage. He denies any fever, chills, nausea , or vomting. He denies ever being told he has diabetes. IN ED: WBC 30.9, H& H stable 10.3/34.2. BUN 43, Creatinine 2.20. Glucose 359 (6units Humalog given in ED). Wound culture obtained from left great toe. Zosyn started in ED. Xray-foot: Osteomyelitis and septic arthritis of the first digit of left foot, soft tissue wound seen over first digit of right foot. Denies smoking, alcohol use, or drug use. He lives with his and ambulates with a cane. Patient was admitted to the hospital with diabetic foot ulcers involving both great toes. He was seen in consultation by Dr. Jacobo Gandhi of surgery and Dr. Arlyn Navarro of infectious diseases. He underwent on 07/26/17 a transmetatarsal amputation of the left great toe and excisional debridement of the right great toe by Dr. Gandhi. Dr. Arlyn Navarro recommended continuation of the original prescribed intravenous vancomycin and Zosyn. Subsequent cultures demonstrated multidrug resistant Proteus vulgaris. The wounds at the site of the surgery healed well with no evidence of residual infection. His antibiotics were changed to intravenous cefepime. On admission the patient was found to have evidence of renal insufficiency seen with BUN and creatinine of 43 and 2.2 respectively. He was treated with intravenous normal saline infusion. At the time of his discharge his BUN and creatinine had decreased to 25 and 1.5 respectively. 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 Admission laboratory testing demonstrated him to have a blood glucose of 359 and hemoglobin A1c of 8.6%. He had no previously known history of diabetes mellitus. He was treated in the hospital with sliding scale insulin coverage and begun on metformin. The time of his discharge his blood glucose was 139. At the time of his discharge Mr. Billings was comfortable with no complaints and eager to go home. Diagnosis - Discharge Diagnosis (1) Osteomyelitis of left foot Status: Acute (2) Acute on chronic renal failure Status: Acute (3) Diabetes mellitus Status: Acute (4) Leukocytosis Status: Chronic (5) Chronic lymphocytic leukemia Status: Chronic Specialty Discharge - Follow Up or Referrals Follow up with: Jacobo Gandhi MD [Physician] - (1-2 weeks for wound follow up) Suzanne Shirley DO [Physician] - (Next week) Tam Lira DO [Physician] - (Chose for primary) Discharge Plan - Discharge Data Disposition: Disch To Home/Self Care Condition at Discharge: Stable Discharge Diet: diabetic diet - Discharge Medications New amLODIPine [Norvasc] 5 mg PO DAILY #30 tablet metFORMIN [Glucophage] 500 mg PO BID W/MEALS #60 tablet Continue Finasteride [Proscar] 5 mg PO DAILY Amiodarone Tab [Cordarone Tab] 200 mg PO BID - Follow Up or Referral Follow Up: Jacobo Gandhi MD [Physician] - (1-2 weeks for wound follow up) Suzanne Shirley DO [Physician] - (Next week) Tam Lira DO [Physician] - (Chose for primary) - Forms/Instructions Exam - Constitutional Vitals: Period Temp Pulse Resp BP Sys/Killian Pulse Ox Last 24 Hr 97.7 F-98.4 F 52-74 16-20 155-183/66-87 91-95 Discharge Results Labs on day of discharge: Labs from last 24 hours 07/30/17 07/29/17 07/29/17 07:22 20:29 15:06 POC Glucose 139 H 137 H 147 H 07/29/17 11:11 POC Glucose 134 H DS: Provider Date of admission: 07/25/17 15:11 Primary care physician: . No PCP Attending physician on admission: Héctor Tucker Consults: 07/25/17 15:36 Consult to Physician [CONS] Routine Comment: Consulting Provider: Jacobo Gandhi When should Consulting Provider be notified: Now Person Notified: MD roldan Date Notified: 07/26/17 Time Notified: 06:30 Consult Notification Comment: foot xray: osteomyelitis and septic arthritis of first digit left foot soft tissue wound over 1st digit right foot odor; gangrene Thank You 07/25/17 15:38 Consult to Case Mgmt/Social Srvs [CONS] Routine Reason for Case Mgmt/Social Srvs: Discharge Planning 07/25/17 19:51 Consult to Dietitian [CONS] Routine Reason for Dietitian: Other Consult to Pastoral Services [CONS] Routine Comment: Pastoral Screen: Request Patient Advocate Visit Pastoral Screen Source of Request: Patient 07/26/17 07:36 Consult to Physician [CONS] Routine Comment: osteomyelitis of toe Consulting Provider: Angella Black Consult to Specialist Group: Infectious Disease Person Notified: UZIEL Date Notified: 07/26/17 Time Notified: 08:47 07/26/17 11:57 Consult to Diabetes Center, Educator [CONS] Routine Reason for Vocational Psychologist: Diabetes Education Consult Comment: new diabetic 07/26/17 18:53 Consult to Case Mgmt/Social Srvs [CONS] Routine Reason for Case Mgmt/Social Srvs: Home Health Consult Comment: needs diabetic equiptment set up 07/27/17 11:27 Consult to Physical Therapy [CONS] Routine Reason for Physical Therapy: Evaluate and Treat 07/28/17 11:38 Consult to Physician [CONS] Routine Comment: leukocytosis with lymphocytosis. Consulting Provider: Andrew Dolan Consult to Specialist Group: Hematology When should Consulting Provider be notified: Now Person Notified: MARY KATE Date Notified: 07/28/17 Time Notified: 11:48 Discharging clinician: Héctor Tucker
--- NOTE | 2017-07-30 10:11 | Event Note ---
The patient is doing well overall. He has CLL and his white blood cell count is still elevated yesterday but he has no signs of infection as far as fevers. He does have a little bit erythema around his wound I think he can go home on some oral clindamycin which have called into his pharmacy. Rather, I have electronically prescribed this to his pharmacy. He has follow-up arranged with Dr. Chavez and will continue wound care at home.
--- NOTE | 2017-08-02 11:01 | Physician Query Form ---
CLICK EDIT DOCUMENT TO SELECT QUERY ANSWER --> OK --> SIGN Chaparrita Lepe RN Clinical [employer] W) [phone] (f) [phone] [email or web address] PROVIDERS: Make your selection(s) from the choices in EACH section by typing an "x" and enter comments in the comment section. Please use your independent medical judgment in providing your response. This request does not imply that any particular answer is desired or expected. CLINICAL INDICATORS: (Providers should not edit this section) Based on conflicting documentation of "Renal insufficiency" and "Acute on chronic renal failure" Creatinine from 2.2 to 1.7. GFR form 29 to 39. Treated with NS infusion. Clarify which of the following most accurately represents the patient's renal status: ( ) Acute kidney injury (non-traumatic) ( ) Acute renal failure (x ) Acute renal failure with underlying Chronic Kidney Disease (CKD) - please provide stage below ( ) Acute renal failure with pathological renal lesion ( ) Acute renal failure with necrosis ( ) tubular ( ) medullary ( ) cortical ( ) CKD - please provide stage below ( ) End Stage Renal Disease ( ) Acute interstitial nephritis ( ) Hepatorenal syndrome ( ) Other, please specify: ( ) Clinically unable to determine Chronic Kidney Disease Stages Source: National Kid[employer] Foundation ( ) Stage I (eGFR > or = 90) ( ) Stage II (eGFR 60 - 89) ( x) Stage III (eGFR 30 - 59) ( ) Stage IV (eGFR 15 - 29) ( ) Stage V (eGFR < 15 or dialysis) COMMENTS: PLEASE ALSO DOCUMENT RESPONSE IN PROGRESS NOTES AND/OR DISCHARGE SUMMARY Use of terms such as suspected, likely, or probable (associated with a specific diagnosis that is being evaluated, monitored, or treated as if it exists) are acceptable and can be restated in the discharge summary if not ruled out. MTDD
== END 2017-07-30 11:30 | disposition home or self-care (01) | DRG 617 ==
LOC: N.ED 12:24 → N.EDINP 15:11 → N.5E 18:11

== ENCOUNTER 2017-08-23 14:39 | Inpatient (IN) ==
[2017-08-23] MEDS ORDERED: GLUCAGON 1 MG VIAL IM PRN (14:48)
[2017-08-23] MEDS ORDERED: ACETAMINOPHEN 325 MG TABLET PO PRN (14:48)
[2017-08-23] MEDS ORDERED: ALBUTEROL/IPRATROPIUM 3 ML NEB RESP TX PRN (14:48)
[2017-08-23] MEDS ORDERED: DEXTROSE 50% 25 GM/50 ML VIAL IV PRN (14:48)
[2017-08-23] MEDS: SODIUM CHLORIDE 0.45% 1,000 ML IV SCH (18:01)
[2017-08-23] MEDS: LEVOFLOXACIN INJ 250 MG in PREMIX 1 EACH IV SCH (18:01)
[2017-08-23] MEDS: INSULIN REGULAR 100 UNIT/ML SUBCUT SCH ×2 (18:01→20:35)
[2017-08-23] MEDS: ALBUTEROL/IPRATROPIUM 3 ML NEB RESP TX SCH (20:23)
[2017-08-23] MEDS: AMIODARONE 200 MG TABLET PO SCH (20:45)
[2017-08-23 20:57] LABS: Apearance,Urine Slightly Hazy (Clear); Bacteria,Urine Many /HPF (Few); Bilirubin,Urine Negative (Negative); Blood, Urine Negative (Negative); Glucose,Urine (UA) 50 mg/dL (Negative); Ketones,Urine Negative (Negative); Nitrite,Urine Negative (Negative); Protein,Urine 30 MG/DL; Urine Color Yellow (Yellow); Urine Urobilinogen < 2.0 EU/DL (0.2-1.0); WBC,Urine 3 /HPF (0-6)
[2017-08-24] MEDS: ALBUTEROL/IPRATROPIUM 3 ML NEB RESP TX SCH ×4 (00:41→20:47)
[2017-08-24 06:34] LABS: Basophils # 0.1 10*3/uL (0.0-0.2); Basophils % 0.2 % (0.0-0.8); Eosinophils # 0.1 10*3/uL (0.0-0.87); Eosinophils % 0.3 % (0.00-10.9); Hematocrit 31.9 VOL% (42.0-52.0); Hemoglobin 9.6 GM/DL (14.0-18.0); Immature Granulocytes % 0.5 %; Immature Granulocytes Absolute 0.18 #; Lymphocytes # 28.6 10*3/uL (1.4-4.0); Lymphocytes % 82.9 % (21.2-54.2); Mean Corpuscular HGB Conc 30.1 GM/DL (32-36); Mean Corpuscular Hemoglobin 25 PG (27-34); Mean Corpuscular Volume 82.6 FL (87-102); Mean Platelet Volume 10.9 FL (9.6-12.0); Monocytes # 0.4 10*3/uL (0.11-0.8); Monocytes % 1.3 % (1.7-12.7); NRBC # 0.02 10*3/uL; Neutrophils # 5.1 10*3/uL (1.4-7.4); Neutrophils % 14.8 % (38.7-73.9); Platelet Count 154 T/CUMM (130-400); Red Blood Count 3.86 MC/CUMM (3.8-5.5); Red Cell Distribution Width 17.7 % (9.3-17.3); White Blood Count 34.5 T/CUMM (4-12)
[2017-08-24 07:05] LABS: Albumin 3.1 G/DL (3.4-5.0); Bilirubin,Total 0.4 MG/DL (0.2-1.0); Calcium 8.4 MG/DL (8.5-10.1); Magnesium 2.2 MG/DL (1.8-2.4); Osmolality,Calculated 287.5 MOS/KG (273-304); Total Protein 5.9 G/DL (6.4-8.3)
[2017-08-24 07:12] LABS: Atypical Lymphocytes Few; Giant Platelets Few; Hypochromasia 1+; Lymphocytes 72 % (20-55); Microcytosis Slight; Platelet Estimate Normal; Segmented Neutrophils 25 % (50-85); Smudge Cells Few; Total Cells Counted 100
[2017-08-24] MEDS: INSULIN REGULAR 100 UNIT/ML SUBCUT SCH ×4 (09:33→21:44)
[2017-08-24] MEDS: SODIUM CHLORIDE 0.45% 1,000 ML IV SCH ×2 (09:35→23:45)
[2017-08-24] MEDS: AMIODARONE 200 MG TABLET PO SCH ×2 (09:36→20:24)
[2017-08-24] MEDS: FINASTERIDE 5 MG TABLET PO SCH (09:36)
[2017-08-24] MEDS: amLODIPine 5 MG TABLET PO SCH (09:36)
[2017-08-24] MEDS: DORNASE ALFA 2.5 MG/2.5 ML VIAL RESP TX SCH ×2 (12:02→20:47)
[2017-08-24] MEDS: LEVOFLOXACIN INJ 250 MG in PREMIX 1 EACH IV SCH (15:39)
[2017-08-25] MEDS: ALBUTEROL/IPRATROPIUM 3 ML NEB RESP TX SCH ×4 (01:59→19:30)
[2017-08-25 06:31] LABS: Basophils % 0.2 % (0.0-0.8); Eosinophils # 0.1 10*3/uL (0.0-0.87); Eosinophils % 0.6 % (0.00-10.9); Hemoglobin 9.2 GM/DL (14.0-18.0); Immature Granulocytes % 0.7 %; Immature Granulocytes Absolute 0.17 #; Lymphocytes # 18.5 10*3/uL (1.4-4.0); Lymphocytes % 79.4 % (21.2-54.2); Mean Corpuscular HGB Conc 30.7 GM/DL (32-36); Mean Corpuscular Hemoglobin 25 PG (27-34); Mean Corpuscular Volume 82.6 FL (87-102); Mean Platelet Volume 10.6 FL (9.6-12.0); Monocytes # 0.4 10*3/uL (0.11-0.8); Monocytes % 1.7 % (1.7-12.7); Neutrophils % 17.4 % (38.7-73.9); Platelet Count 121 T/CUMM (130-400); Red Blood Count 3.63 MC/CUMM (3.8-5.5); Red Cell Distribution Width 17.4 % (9.3-17.3); White Blood Count 23.3 T/CUMM (4-12)
[2017-08-25 06:53] LABS: Lymphocytes 60 % (20-55); Myelocytes 2 %; Nucleated Red Blood Cells 1 (0-5); Segmented Neutrophils 36 % (50-85); Total Cells Counted 100
[2017-08-25 06:54] LABS: Hypochromasia 2+; Macrocytosis 1+; Platelet Estimate Decreased; Smudge Cells Moderate
[2017-08-25 07:06] LABS: % Iron Saturation 11.5 % (18-50)
[2017-08-25 07:08] LABS: Folate 12.2 NG/ML (5.4-24.0)
[2017-08-25] MEDS: DORNASE ALFA 2.5 MG/2.5 ML VIAL RESP TX SCH ×2 (07:22→19:36)
[2017-08-25] MEDS: AMIODARONE 200 MG TABLET PO SCH ×2 (09:40→21:36)
[2017-08-25] MEDS: amLODIPine 5 MG TABLET PO SCH (09:40)
[2017-08-25] MEDS: FINASTERIDE 5 MG TABLET PO SCH (09:40)
[2017-08-25] MEDS: INSULIN REGULAR 100 UNIT/ML SUBCUT SCH ×4 (12:07→21:39)
[2017-08-25] MEDS: FERROUS SULFATE 325 MG TABLET PO SCH ×2 (15:05→21:36)
[2017-08-25] MEDS: BACITRACIN OINT 0.9 GM PACK TOP SCH (15:22)
[2017-08-25 15:31] LABS: Procalcitonin, S 0.19 ng/mL (<=0.15)
[2017-08-25] MEDS: LEVOFLOXACIN INJ 250 MG in PREMIX 1 EACH IV SCH (16:56)
[2017-08-25] MEDS: SODIUM CHLORIDE 0.45% 1,000 ML IV SCH (18:52)
[2017-08-26] MEDS: ALBUTEROL/IPRATROPIUM 3 ML NEB RESP TX SCH ×4 (01:07→19:09)
[2017-08-26] MEDS: DORNASE ALFA 2.5 MG/2.5 ML VIAL RESP TX SCH ×2 (08:00→19:17)
[2017-08-26] MEDS: FINASTERIDE 5 MG TABLET PO SCH (09:10)
[2017-08-26] MEDS: amLODIPine 5 MG TABLET PO SCH (09:11)
[2017-08-26] MEDS: BACITRACIN OINT 0.9 GM PACK TOP SCH (09:11)
[2017-08-26] MEDS: FERROUS SULFATE 325 MG TABLET PO SCH ×2 (09:11→21:04)
[2017-08-26] MEDS: AMIODARONE 200 MG TABLET PO SCH ×2 (09:11→21:04)
[2017-08-26] MEDS: INSULIN REGULAR 100 UNIT/ML SUBCUT SCH ×4 (09:13→22:45)
[2017-08-26] MEDS: SODIUM CHLORIDE 0.45% 1,000 ML IV SCH ×2 (12:04→13:58)
[2017-08-26] MEDS: DOCUSATE SODIUM 100 MG CAPSULE PO SCH ×2 (15:09→21:04)
[2017-08-26] MEDS: LEVOFLOXACIN INJ 250 MG in PREMIX 1 EACH IV SCH (17:13)
[2017-08-27] MEDS: ALBUTEROL/IPRATROPIUM 3 ML NEB RESP TX SCH ×4 (00:45→20:14)
[2017-08-27] MEDS: SODIUM CHLORIDE 0.45% 1,000 ML IV SCH ×2 (02:50→08:05)
[2017-08-27] MEDS: DORNASE ALFA 2.5 MG/2.5 ML VIAL RESP TX SCH ×2 (07:06→20:14)
[2017-08-27] MEDS: FERROUS SULFATE 325 MG TABLET PO SCH ×2 (08:03→21:34)
[2017-08-27] MEDS: AMIODARONE 200 MG TABLET PO SCH ×2 (08:03→21:34)
[2017-08-27] MEDS: DOCUSATE SODIUM 100 MG CAPSULE PO SCH ×2 (08:03→21:34)
[2017-08-27] MEDS: FINASTERIDE 5 MG TABLET PO SCH (08:03)
[2017-08-27] MEDS: amLODIPine 5 MG TABLET PO SCH (08:03)
[2017-08-27] MEDS: INSULIN REGULAR 100 UNIT/ML SUBCUT SCH ×4 (09:45→21:52)
[2017-08-27] MEDS: BACITRACIN OINT 0.9 GM PACK TOP SCH (09:45)
[2017-08-27] MEDS: LEVOFLOXACIN INJ 250 MG in PREMIX 1 EACH IV SCH (17:07)
[2017-08-28] MEDS: ALBUTEROL/IPRATROPIUM 3 ML NEB RESP TX SCH ×2 (00:18→07:42)
[2017-08-28] MEDS: SODIUM CHLORIDE 0.45% 1,000 ML IV SCH ×2 (02:09→12:34)
[2017-08-28] MEDS: DORNASE ALFA 2.5 MG/2.5 ML VIAL RESP TX SCH (07:43)
[2017-08-28] MEDS: INSULIN REGULAR 100 UNIT/ML SUBCUT SCH ×2 (08:20→12:34)
[2017-08-28] MEDS: FERROUS SULFATE 325 MG TABLET PO SCH (09:37)
[2017-08-28] MEDS: amLODIPine 5 MG TABLET PO SCH (09:37)
[2017-08-28] MEDS: FINASTERIDE 5 MG TABLET PO SCH (09:37)
[2017-08-28] MEDS: DOCUSATE SODIUM 100 MG CAPSULE PO SCH (09:38)
[2017-08-28] MEDS: AMIODARONE 200 MG TABLET PO SCH (09:38)
[2017-08-28] MEDS: BACITRACIN OINT 0.9 GM PACK TOP SCH (09:38)
[2017-08-28 09:56] VITALS: BP 153/78
== END 2017-08-28 12:46 | disposition home health service (06) | DRG 178 ==
LOC: N.5E 15:31
PROVIDERS: ADMIT Internal Medicine Pulmonary Disease; ATTEND Internal Medicine Pulmonary Disease

== ENCOUNTER 2018-05-12 13:22 | Inpatient (IN) ==
[2018-05-12 13:51] LABS: Basophils # 0.1 10*3/uL (0.0-0.2); Basophils % 0.2 % (0.0-0.8); Eosinophils % 0.1 % (0.00-10.9); Hematocrit 37.1 VOL% (42.0-52.0); Hemoglobin 11.3 GM/DL (14.0-18.0); Immature Granulocytes % 0.5 %; Immature Granulocytes Absolute 0.19 #; Lymphocytes # 29.1 10*3/uL (1.4-4.0); Lymphocytes % 78.8 % (21.2-54.2); Mean Corpuscular HGB Conc 30.5 GM/DL (32-36); Mean Corpuscular Hemoglobin 27 PG (27-34); Mean Corpuscular Volume 87.9 FL (87-102); Monocytes # 0.4 10*3/uL (0.11-0.8); Neutrophils # 7.2 10*3/uL (1.4-7.4); Neutrophils % 19.4 % (38.7-73.9); Platelet Count 150 T/CUMM (130-400); Red Blood Count 4.22 MC/CUMM (3.8-5.5); Red Cell Distribution Width 16.1 % (9.3-17.3); White Blood Count 36.9 T/CUMM (4-12)
[2018-05-12] MEDS ORDERED: MORPHINE 4 MG/1 ML VIAL IV STA (13:52)
[2018-05-12] MEDS ORDERED: MORPHINE 4 MG/1 ML VIAL ONE (13:55)
[2018-05-12 14:26] LABS: Alanine Aminotransferase 19 U/L (16-61); Alkaline Phosphatase 66 U/L (45-117); Aspartate Amino Transferase 16 U/L (0-37); Bilirubin,Total < 0.39 MG/DL (0.2-1.0); Blood Urea Nitrogen 36 MG/DL (7-18); Calcium 8.3 MG/DL (8.5-10.1); Glucose 115 MG/DL (74-106); Osmolality,Calculated 287.4 MOS/KG (273-304); Potassium 5.1 MMOL/L (3.5-5.1); Sodium 140 MMOL/L (136-145); Total Protein 6.9 G/DL (6.4-8.3)
[2018-05-12 14:30] LABS: Atypical Lymphocytes Few; Lymphocytes 62 % (20-55); Segmented Neutrophils 38 % (50-85); Smudge Cells Many; Total Cells Counted 100
[2018-05-12 14:31] LABS: Microcytosis 1+; Platelet Estimate Adequate
[2018-05-12] MEDS ORDERED: ACETAMINOPHEN 325 MG TABLET PO PRN (17:12)
[2018-05-12] MEDS ORDERED: ONDANSETRON 4 MG/2 ML VIAL IV PRN (17:12)
[2018-05-12] MEDS ORDERED: MORPHINE 4 MG/1 ML VIAL IV PRN (17:23)
[2018-05-12] MEDS: SODIUM CHLORIDE 0.9% 1,000 ML IV SCH (17:37)
[2018-05-12] MEDS ORDERED: DEXTROSE 50% 25 GM/50 ML VIAL IV PRN (18:11)
[2018-05-12] MEDS ORDERED: GLUCAGON 1 MG VIAL IM PRN (18:11)
[2018-05-12] MEDS: INSULIN LISPRO 100 UNIT/ML SUBCUT SCH (21:07)
[2018-05-12 23:05] LABS: Apearance,Urine CLOUDY (Clear); Bacteria,Urine Many /HPF (Few); Bilirubin,Urine Negative (Negative); Blood, Urine Small mg/dL (Negative); Glucose,Urine (UA) Negative (Negative); Ketones,Urine Negative (Negative); Nitrite,Urine Negative (Negative); Protein,Urine 30 MG/DL; Squamous Epithelial Cell,Urine Occasional /HPF (0-10); Urine Color Yellow (Yellow); Urine Urobilinogen < 2.0 EU/DL (0.2-1.0); WBC,Urine 41 /HPF (0-6)
[2018-05-12] MEDS ORDERED: ALBUTEROL/IPRATROPIUM 3 ML NEB RESP TX ONE (23:19)
[2018-05-12] MEDS ORDERED: methylPREDNISolone SOD SUC 125 MG/2 ML VIAL IV ONE (23:20)
[2018-05-13 04:58] LABS: Basophils # 0.1 10*3/uL (0.0-0.2); Basophils % 0.2 % (0.0-0.8); Hematocrit 35.5 VOL% (42.0-52.0); Hemoglobin 10.8 GM/DL (14.0-18.0); Immature Granulocytes % 0.2 %; Immature Granulocytes Absolute 0.07 #; Lymphocytes # 23.4 10*3/uL (1.4-4.0); Lymphocytes % 79.6 % (21.2-54.2); Mean Corpuscular HGB Conc 30.4 GM/DL (32-36); Mean Corpuscular Hemoglobin 27 PG (27-34); Mean Corpuscular Volume 87.2 FL (87-102); Mean Platelet Volume 11.8 FL (9.6-12.0); Monocytes # 0.3 10*3/uL (0.11-0.8); NRBC # 0.02 10*3/uL; Neutrophils # 5.6 10*3/uL (1.4-7.4); Platelet Count 128 T/CUMM (130-400); Red Blood Count 4.07 MC/CUMM (3.8-5.5); White Blood Count 29.4 T/CUMM (4-12)
[2018-05-13 05:09] LABS: INR 1.1; PT Patient Result 11.4 SECS; Partial Thromboplastin Time 30.9 SECS (0-40)
[2018-05-13 05:24] LABS: Atypical Lymphocytes Few; Band Neutrophils 3 % (0-10); Hypochromasia 1+; Lymphocytes 45 % (20-55); Platelet Estimate Normal; Segmented Neutrophils 52 % (50-85); Smudge Cells Few; Total Cells Counted 100
[2018-05-13 05:25] LABS: Microcytosis Slight
[2018-05-13 05:32] LABS: Calcium 8.6 MG/DL (8.5-10.1); Osmolality,Calculated 287.5 MOS/KG (273-304); Potassium 4.3 MMOL/L (3.5-5.1); Risk Ratio 4.45; Thyroid Stimulating Hormone 3.95 uIU/ml (0.358-3.74); VLDL CHOLESTEROL 27.2 MG/DL
[2018-05-13] MEDS: AMIODARONE 200 MG TABLET PO SCH ×2 (07:04→11:15)
[2018-05-13] MEDS: amLODIPine 5 MG TABLET PO SCH ×2 (07:04→11:15)
[2018-05-13] MEDS ORDERED: ceFAZolin 1,000 MG VIAL ONE (07:44)
[2018-05-13] MEDS ORDERED: ceFAZolin 2,000 MG in PREMIX 1 EACH IV ONE (08:20)
[2018-05-13] MEDS: MORPHINE 10 MG/1 ML VIAL IV PRN ×3 (09:20→09:30)
[2018-05-13] MEDS ORDERED: MIDAZOLAM 2 MG/2 ML VIAL ONE (09:26)
[2018-05-13] MEDS ORDERED: KETAMINE 500 MG/10 ML VIAL ONE (09:26)
[2018-05-13] MEDS ORDERED: PROPOFOL 200 MG/20 ML VIAL IV ONE (09:27)
[2018-05-13] MEDS ORDERED: PHENYLEPHRINE 1 MG/10 ML SYRINGE IV ONE (09:28)
[2018-05-13] MEDS ORDERED: SODIUM CHLORIDE 0.9% 100 ML IV ONE (09:28)
[2018-05-13] MEDS ORDERED: MORPHINE 10 MG/1 ML VIAL ONE (09:28)
[2018-05-13] MEDS ORDERED: ONDANSETRON 4 MG/2 ML VIAL ONE ×2 (09:28)
[2018-05-13] MEDS ORDERED: ONDANSETRON 4 MG/2 ML VIAL IV PRN (09:29)
[2018-05-13] MEDS ORDERED: ACETAMINOPHEN 1,000 MG/100 ML VIAL IV ONE (09:31)
[2018-05-13] MEDS ORDERED: MAGNESIUM HYDROXIDE SUSP 30 ML UDCUP PO PRN (10:33)
[2018-05-13] MEDS: PANTOPRAZOLE 40 MG TABLET PO SCH (11:02)
[2018-05-13] MEDS: ceFAZolin 1,000 MG in SYRINGE 1 EACH IV SCH ×2 (11:05→17:15)
[2018-05-13] MEDS: FINASTERIDE 5 MG TABLET PO SCH (11:14)
[2018-05-13] MEDS: INSULIN LISPRO 100 UNIT/ML SUBCUT SCH ×4 (12:17→20:17)
[2018-05-13] MEDS: SODIUM CHLORIDE 0.9% 1,000 ML IV SCH (15:05)
[2018-05-14] MEDS: ceFAZolin 1,000 MG in SYRINGE 1 EACH IV SCH ×3 (00:54→17:50)
[2018-05-14 04:55] LABS: Basophils # 0.1 10*3/uL (0.0-0.2); Basophils % 0.1 % (0.0-0.8); Hematocrit 32.8 VOL% (42.0-52.0); Hemoglobin 9.9 GM/DL (14.0-18.0); Immature Granulocytes % 0.3 %; Immature Granulocytes Absolute 0.11 #; Lymphocytes % 83.7 % (21.2-54.2); Mean Corpuscular HGB Conc 30.2 GM/DL (32-36); Mean Corpuscular Hemoglobin 26 PG (27-34); Mean Corpuscular Volume 87.2 FL (87-102); Mean Platelet Volume 10.7 FL (9.6-12.0); Monocytes # 0.5 10*3/uL (0.11-0.8); Monocytes % 1.2 % (1.7-12.7); Neutrophils % 14.7 % (38.7-73.9); Platelet Count 123 T/CUMM (130-400); Red Blood Count 3.76 MC/CUMM (3.8-5.5)
[2018-05-14 05:00] LABS: White Blood Count 40.6 T/CUMM (4-12)
[2018-05-14 05:10] LABS: Calcium 8.1 MG/DL (8.5-10.1); Osmolality,Calculated 287.4 MOS/KG (273-304); Potassium 4.8 MMOL/L (3.5-5.1)
[2018-05-14 05:26] LABS: Band Neutrophils 1 % (0-10); Lymphocytes 77 % (20-55); Platelet Estimate Normal; Segmented Neutrophils 22 % (50-85); Total Cells Counted 100
[2018-05-14 05:27] LABS: Atypical Lymphocytes 1+; Smudge Cells 2+
[2018-05-14] MEDS: INSULIN LISPRO 100 UNIT/ML SUBCUT SCH ×4 (07:30→21:55)
[2018-05-14] MEDS: FINASTERIDE 5 MG TABLET PO SCH (09:29)
[2018-05-14] MEDS: amLODIPine 5 MG TABLET PO SCH (09:30)
[2018-05-14] MEDS: PANTOPRAZOLE 40 MG TABLET PO SCH (09:30)
[2018-05-14] MEDS: SODIUM CHLORIDE 0.9% 1,000 ML IV SCH (09:30)
[2018-05-14] MEDS: AMIODARONE 200 MG TABLET PO SCH (09:30)
[2018-05-14] MEDS: ENOXAPARIN 40 MG/0.4 ML SYRINGE SUBCUT SCH (09:31)
[2018-05-15] MEDS: ceFAZolin 1,000 MG in SYRINGE 1 EACH IV SCH ×2 (02:36→09:36)
[2018-05-15 06:54] LABS: Basophils # 0.1 10*3/uL (0.0-0.2); Basophils % 0.2 % (0.0-0.8); Eosinophils % 0.1 % (0.00-10.9); Hematocrit 31.3 VOL% (42.0-52.0); Hemoglobin 9.7 GM/DL (14.0-18.0); Immature Granulocytes % 0.3 %; Immature Granulocytes Absolute 0.09 #; Lymphocytes # 24.9 10*3/uL (1.4-4.0); Mean Corpuscular Hemoglobin 27 PG (27-34); Mean Corpuscular Volume 85.8 FL (87-102); Mean Platelet Volume 11.3 FL (9.6-12.0); Monocytes # 0.4 10*3/uL (0.11-0.8); Monocytes % 1.3 % (1.7-12.7); Neutrophils # 5.3 10*3/uL (1.4-7.4); Neutrophils % 17.1 % (38.7-73.9); Platelet Count 142 T/CUMM (130-400); Red Blood Count 3.65 MC/CUMM (3.8-5.5); Red Cell Distribution Width 16.2 % (9.3-17.3); White Blood Count 30.8 T/CUMM (4-12)
[2018-05-15 07:06] LABS: Calcium 8.3 MG/DL (8.5-10.1)
[2018-05-15 07:07] LABS: Osmolality,Calculated 291.3 MOS/KG (273-304); Potassium 4.3 MMOL/L (3.5-5.1)
[2018-05-15 07:25] LABS: Atypical Lymphocytes Few; Band Neutrophils 1 % (0-10); Hypochromasia 1+; Lymphocytes 60 % (20-55); Platelet Estimate Normal; Segmented Neutrophils 35 % (50-85); Smudge Cells Few; Total Cells Counted 100
[2018-05-15 07:29] LABS: Microcytosis Slight
[2018-05-15] MEDS: amLODIPine 5 MG TABLET PO SCH (09:33)
[2018-05-15] MEDS: AMIODARONE 200 MG TABLET PO SCH (09:34)
[2018-05-15] MEDS: FINASTERIDE 5 MG TABLET PO SCH (09:34)
[2018-05-15] MEDS: PANTOPRAZOLE 40 MG TABLET PO SCH (09:34)
[2018-05-15] MEDS: INSULIN LISPRO 100 UNIT/ML SUBCUT SCH ×2 (09:36→11:40)
[2018-05-15] MEDS: ENOXAPARIN 40 MG/0.4 ML SYRINGE SUBCUT SCH (09:36)
[2018-05-15] MEDS ORDERED: TUBERCULIN SKIN TEST 0.1 ML SYRINGE INTRADERM ONE (10:24)
[2018-05-15 12:34] VITALS: BP 117/57
== END 2018-05-15 14:17 | DRG 481 ==
LOC: EDBD → EDUNIT# → N.ED 13:22 → N.EDINP 15:53 → SUATTDRO 15:53 → N.EDINP 16:56 → N.3E 17:02
PROVIDERS: ATTEND Internal Medicine